=== PATIENT | female | born 1935 | race African-American/Black ===

== ENCOUNTER 2016-10-03 17:46 | Inpatient (IN) | payer MEDICAID, OTHER ==
[~2016-10-03] VITALS: Ht 162.6 cm; Wt 56.7 kg
[~2016-10-03 17:46] MED LIST: ASPIR-LOW81 MG PO; COREG; NORVASC; ONDANSETRON ODT4 MG PO; PEPCID
[2016-10-03 20:45] LABS: BASOPHILS % (AUTO) 1.8 % (0.0-2.0); EOSINOPHILS % (AUTO) 2.1 % (0.0-3.0); LYMPHOCYTES % (AUTO) 20.6 % (20.0-45.0); MEAN CORPUSCULAR HEMOGLOBIN 31.7 PG (27.0-31.0); MEAN CORPUSCULAR VOLUME 93 FL (80-99); MEAN PLATELET VOLUME 7.5 FL (6.5-10.1); MONOCYTES % (AUTO) 11.3 % (1.0-10.0); NEUTROPHILS % (AUTO) 64.3 % (45.0-75.0); PLATELET COUNT 149 K/UL (150-450); RED BLOOD COUNT 4.45 M/UL (4.20-5.40); RED CELL DISTRIBUTION WIDTH 13.6 % (11.6-14.8); WHITE BLOOD COUNT 5.3 K/UL (4.8-10.8)
[2016-10-03 20:54] LABS: TROPONIN I < 0.30 ng/mL (<=0.30)
[2016-10-03 20:57] LABS: ALANINE AMINOTRANSFERASE 11 U/L (3-33); ALBUMIN/GLOBULIN RATIO 0.7 (1.0-2.7); ANION GAP 14 (5-15); ASPARTATE AMINO TRANSFERASE 19 U/L (5-40); CALCIUM 9.5 mg/dL (8.6-10.2); CARBON DIOXIDE 26 mEQ/L (20-30); CHLORIDE 98 mEQ/L (98-107); CREATININE 0.8 mg/dL (0.5-0.9); HEMOLYSIS 17; POTASSIUM 3.7 mEQ/L (3.4-4.9); SODIUM 138 mEQ/L (135-145); TOTAL PROTEIN 7.7 g/dL (6.6-8.7)
[2016-10-03 21:00] VITALS: BP 107/80
[2016-10-03] MEDS ORDERED: DuoNeb 0.5-3(2.5)mg/3ml neb HHN PRN (21:15)
[2016-10-03] MEDS ORDERED: Mylanta II UD 30ml ORAL PRN (21:15)
[2016-10-03] MEDS ORDERED: LORazepam Inj 2mg/ml 1ml IV PRN (21:15)
[2016-10-03] MEDS ORDERED: Morphine Sulfate 2mg/ml Inj IVP PRN (21:15)
[2016-10-03] MEDS ORDERED: Nitroglycerin Subl 0.4mg tab (Bottle Of 25) SL PRN (21:15)
[2016-10-03] MEDS ORDERED: Miralax 17gm pkt ORAL PRN (21:15)
[2016-10-03 21:30] LABS: APPEARANCE,URINE CLEAR; KETONES,URINE NEGATIVE (NEGATIVE); LEUKOCYTE ESTERASE ,URINE 1+ (NEGATIVE); NITRITE,URINE NEGATIVE (NEGATIVE); PH,URINE 5 (4.5-8.0); PROTEIN,URINE 2+ (NEGATIVE); UROBILINOGEN,URINE NORMAL MG/DL (0.0-1.0)
[2016-10-03 21:38] LABS: BACTERIA,URINE MODERATE /HPF; SQUAMOUS EPITHELIAL CELL,UR FEW /LPF (NONE/OCC)
[2016-10-03] MEDS ORDERED: UNOBMED (21:52)
--- NOTE | 2016-10-03 21:56 | Emergency Room Report ---
History of Present Illness General Chief Complaint: Syncope Source: Family Member, EMS Present Illness HPI 81-year-old female presents to ED evaluation. Son at bedside states that patient was found down on the ground. unwitnessed. Unclear what happened. Patient has dementia and is unable to provide any additional history at this time. Patient does not recall falling. Patient denies chest pain or shortness of breath. Denies fevers or chills. No other aggravating or relieving factors. Denies any other associated symptoms Allergies: Coded Allergies: No Known Allergies (Unverified , 07/02/12) Patient History Past Medical History: HTN, GERD, dementia Past Surgical History: none Pertinent Family History: none Social History: Denies: alcohol use, drug use, smoking Last Menstrual Period: na Now: No Immunizations: UTD Reviewed Nursing Documentation: PMH: Agreed, PSxH: Agreed Nursing Documentation-PMH Past Medical History: No History, Except For Hx Cardiac Problems: Yes - irregular heartrate Hx Hypertension: Yes Hx Gastrointestinal Problems: Yes - GERD History Of Psychiatric Problem: Yes - dementia Review of Systems All Other Systems: negative except mentioned in HPI Physical Exam Vital Signs Date Time Temp Pulse Resp B/P Pulse Ox O2 Delivery O2 Flow Rate FiO2 10/03/16 17:42 98.2 75 18 112/58 92 10/03/16 21:00 Room Air Sp02 EP Interpretation: reviewed, normal General Appearance: no apparent distress, alert, GCS 15, non-toxic, thin Head: normocephalic, atraumatic Eyes: bilateral eye PERRL, bilateral eye normal inspection ENT: hearing grossly normal, normal pharynx, no angioedema, normal voice Neck: full range of motion, supple/symm/no masses Respiratory: chest non-tender, lungs clear, normal breath sounds, speaking full sentences Cardiovascular #1: regular rate, rhythm, no edema Cardiovascular #2: 2+ carotid (R), 2+ carotid (L), 2+ radial (R), 2+ radial (L) , 2+ dorsalis pedis (R), 2+ dorsalis pedis (L) Gastrointestinal: normal bowel sounds, non tender, soft, non-distended, no guarding, no rebound Rectal: deferred Genitourinary: normal inspection, no CVA tenderness Musculoskeletal: back normal, gait/station normal, normal range of motion, non- tender Neurologic: alert, responsive, motor strength/tone normal, sensory intact, speech normal, other - dementia Psychiatric: other - dementia Reflexes: 3+ bicep (R), 3+ bicep (L), 3+ tricep (R), 3+ tricep (L), 3+ knee (R) , 3+ knee (L) Skin: normal color, no rash, warm/dry, well hydrated Lymphatic: no adenopathy Medical Decision Making Diagnostic Impression: Primary Impression: Syncope Qualified Codes: R55 - Syncope and collapse ER Course Hospital Course 81-year-old F presents ED s/p syncopal episode. found down on ground Differential diagnoses include: TX/unstable angina, arrythmia, dehydration, CVA/ TIA Clinical course Patient placed on stretcher. on [employer]. After initial history and physical I ordered labs, EKG, chest x-ray, IVFs, CT Brain labs reviewed- no leukocytosis, hemoglobin/hematocrit ok, electrolytes okay, troponins negative EKG- NSr, no acute changes Chest x-ray- intersitial lung changes bilaterally CT brain-unremarkable Case discussed with Dr. Osorio and he agreed to accept the patient to his service for further care and support I. I feel this is a highly complex case requiring extensive working including EKG/Rhythm strip, Xray/CT/US, Blood/urine lab work, repeat exams while in ED, and administration of strong opiates/narcotics for pain control, admission to hospital or close patient follow up. Diagnosis - syncope admitted to telemetry in serious condition Labs Test 10/03/16 20:00 10/03/16 21:00 White Blood Count 5.3 K/UL (4.8-10.8) Red Blood Count 4.45 M/UL (4.20-5.40) Hemoglobin 14.1 G/DL (12.0-16.0) Hematocrit 41.4 % (37.0-47.0) Mean Corpuscular Volume 93 FL (80-99) Mean Corpuscular Hemoglobin 31.7 PG (27.0-31.0) Mean Corpuscular Hemoglobin Concent 34.0 G/DL (32.0-36.0) Red Cell Distribution Width 13.6 % (11.6-14.8) Platelet Count 149 K/UL (150-450) Mean Platelet Volume 7.5 FL (6.5-10.1) Neutrophils (%) (Auto) 64.3 % (45.0-75.0) Lymphocytes (%) (Auto) 20.6 % (20.0-45.0) Monocytes (%) (Auto) 11.3 % (1.0-10.0) Eosinophils (%) (Auto) 2.1 % (0.0-3.0) Basophils (%) (Auto) 1.8 % (0.0-2.0) Sodium Level 138 mEQ/L (135-145) Potassium Level 3.7 mEQ/L (3.4-4.9) Chloride Level 98 mEQ/L (98-107) Carbon Dioxide Level 26 mEQ/L (20-30) Anion Gap 14 (5-15) Blood Urea Nitrogen 18 mg/dL (7-23) Creatinine 0.8 mg/dL (0.5-0.9) Estimat Glomerular Filtration Rate mL/min (>60) Glucose Level 120 mg/dL (74-106) Calcium Level 9.5 mg/dL (8.6-10.2) Total Bilirubin 0.2 mg/dL (0.0-1.2) Aspartate Amino Transf (AST/SGOT) 19 U/L (5-40) Alanine Aminotransferase (ALT/SGPT) 11 U/L (3-33) Alkaline Phosphatase 93 U/L (35-104) Total Creatine Kinase 135 U/L (26-140) Creatine Kinase MB 2.0 ng/mL (< 3.8) Creatine Kinase MB Relative Index 1.4 Troponin I < 0.30 ng/mL (<=0.30) Pro-B-Type Natriuretic Peptide 76 pg/mL (0-450) Total Protein 7.7 g/dL (6.6-8.7) Albumin 3.3 g/dL (3.5-5.2) Globulin 4.4 g/dL Albumin/Globulin Ratio 0.7 (1.0-2.7) Urine Color Yellow Urine Appearance Clear Urine pH 5 (4.5-8.0) Urine Specific [place] 1.025 (1.005-1.035) Urine Protein 2+ (NEGATIVE) Urine Glucose (UA) Negative (NEGATIVE) Urine Ketones Negative (NEGATIVE) Urine Occult Blood 3+ (NEGATIVE) Urine Nitrite Negative (NEGATIVE) Urine Bilirubin Negative (NEGATIVE) Urine Urobilinogen Normal MG/DL (0.0-1.0) Urine Leukocyte Esterase 1+ (NEGATIVE) Urine RBC 5-10 /HPF (0 - 2) Urine WBC 2-4 /HPF (0 - 2) Urine Squamous Epithelial Cells Few /LPF (NONE/OCC) Urine Bacteria Moderate /HPF (NONE) EKG Diagnostic Results Rate: normal Rhythm: NSR ST Segments: no acute changes ASA given to the pt in ED: No Rhythm Strip Diag. Results EP Interpretation: yes Rhythm: NSR, no PVC's, no ectopy Chest X-Ray Diagnostic Results EP Interpretation: Yes Findings: no consolidation, no effusion, no pneumothorax, no acute cardiopulmonary disease, other - interstitial lung changes bilaterally Number of Views: 1 CT/MRI/US Diagnostic Results CT/MRI/US Diagnostic Results : Imaging Test Ordered: CT head Impression no acute process Last Vital Signs Date Time Temp Pulse Resp B/P Pulse Ox O2 Delivery O2 Flow Rate FiO2 10/03/16 21:00 97.2 103 15 107/80 98 Room Air Status: improved Disposition: ADMITTED INPATIENT Condition: Serious Referrals: DANE RUVALCABA (PCP) DENNIS TERRAZAS M.D. October 03, 2016 21:56
[2016-10-03] MEDS: Heparin 5000 units/ml inj SUBQ SCH (23:57)
[2016-10-04] VITALS (7 sets, daily range): BP systolic 99–154; BP diastolic 53–96
[2016-10-04 06:04] LABS: BASOPHILS % (AUTO) 1.4 % (0.0-2.0); EOSINOPHILS % (AUTO) 2.9 % (0.0-3.0); LYMPHOCYTES % (AUTO) 35.9 % (20.0-45.0); MEAN CORPUSCULAR HEMOGLOBIN 29.6 PG (27.0-31.0); MEAN CORPUSCULAR HGB CONC 32.1 G/DL (32.0-36.0); MEAN CORPUSCULAR VOLUME 92 FL (80-99); MEAN PLATELET VOLUME 6.9 FL (6.5-10.1); MONOCYTES % (AUTO) 10.7 % (1.0-10.0); NEUTROPHILS % (AUTO) 49.1 % (45.0-75.0); PLATELET COUNT 165 K/UL (150-450); RED BLOOD COUNT 4.41 M/UL (4.20-5.40); RED CELL DISTRIBUTION WIDTH 13.9 % (11.6-14.8); WHITE BLOOD COUNT 4.1 K/UL (4.8-10.8)
[2016-10-04 06:11] LABS: INR 1.1 (0.9-1.1); PROTHROMBIN TIME 11.3 SEC (9.30-11.50)
[2016-10-04 06:40] LABS: ALANINE AMINOTRANSFERASE 10 U/L (3-33); ALBUMIN/GLOBULIN RATIO 0.6 (1.0-2.7); ANION GAP 13 (5-15); ASPARTATE AMINO TRANSFERASE 17 U/L (5-40); CARBON DIOXIDE 27 mEQ/L (20-30); CHLORIDE 99 mEQ/L (98-107); CHOLESTEROL 172 mg/dL (< 200); CHOLESTEROL/HDL RATIO 2.2 (3.3-4.4); CREATININE 0.6 mg/dL (0.5-0.9); HEMOLYSIS 20; LDL CHOLESTEROL (CALC.) 81 mg/dL (60-99); POTASSIUM 3.6 mEQ/L (3.4-4.9); SODIUM 139 mEQ/L (135-145)
[2016-10-04] MEDS: Heparin 5000 units/ml inj SUBQ SCH ×2 (08:35→21:00)
--- NOTE | 2016-10-04 08:35 | Diagnostic Imaging Report ---
Indication: Syncope Technique: Contiguous 5 mm thick transaxial imaging of the head obtained in a Siemens Sensation [address] scanner. Soft tissue and bone windows generated. Total Dose length Product (DLP): [address] Dose Index Volume (CTDIvol): 70.38 mGy Comparison: none Findings: There is moderate prominence of the ventricles, basal cisterns, and cerebral sulci consistent with atrophy. Moderate, nonspecific, white matter hypoattenuation is noted throughout the brain consistent with chronic small vessel disease. There is no midline shift, edema, acute hemorrhage, mass effect, or abnormal extra-axial fluid collections. Bones and extra osseous soft tissues are unremarkable. Impression: No acute intracranial bleed, mass effect or edema. Moderate atrophy of the brain. Evidence of chronic small vessel disease involving white matter tracts. The CT scanner at [facility] is accredited by the [employer] and the scans are performed using protocols designed to limit radiation exposure to as low as reasonably achievable to attain images of sufficient resolution adequate for diagnostic evaluation.
--- NOTE | 2016-10-04 10:54 | Cardiology Progress Note ---
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 driver through her hmo on thrus as planned [id number] Objective Last 24 Hour Vital Signs Date Time Temp Pulse Resp B/P Pulse Ox O2 Delivery O2 Flow Rate FiO2 10/04/16 08:53 97.3 64 18 128/96 99 Room Air 10/04/16 06:38 64 17 Room Air 10/04/16 04:00 110 10/04/16 04:00 97.9 62 20 124/65 98 Room Air 10/04/16 00:51 107 20 Room Air 10/04/16 00:00 107 10/04/16 00:00 98.1 107 20 133/68 98 Room Air 10/03/16 21:52 97.2 103 15 107/80 98 Room Air 10/03/16 21:00 97.2 103 15 107/80 98 Room Air 10/03/16 17:42 98.2 75 18 112/58 92 Intake and Output 10/03/16 10/04/16 19:00 07:00 Intake Total 500 ml Output Total 200 ml Balance 300 ml IV Total 500 ml Output Urine Total 200 ml # Voids 2 Laboratory Tests Test 10/03/16 20:00 10/03/16 21:00 10/04/16 04:30 White Blood Count 5.3 K/UL (4.8-10.8) 4.1 K/UL (4.8-10.8) L Red Blood Count 4.45 M/UL (4.20-5.40) 4.41 M/UL (4.20-5.40) Hemoglobin 14.1 G/DL (12.0-16.0) 13.1 G/DL (12.0-16.0) Hematocrit 41.4 % (37.0-47.0) 40.6 % (37.0-47.0) Mean Corpuscular Volume 93 FL (80-99) 92 FL (80-99) Mean Corpuscular Hemoglobin 31.7 PG (27.0-31.0) H 29.6 PG (27.0-31.0) Mean Corpuscular Hemoglobin Concent 34.0 G/DL (32.0-36.0) 32.1 G/DL (32.0-36.0) Red Cell Distribution Width 13.6 % (11.6-14.8) 13.9 % (11.6-14.8) Platelet Count 149 K/UL (150-450) L 165 K/UL (150-450) Mean Platelet Volume 7.5 FL (6.5-10.1) 6.9 FL (6.5-10.1) Neutrophils (%) (Auto) 64.3 % (45.0-75.0) 49.1 % (45.0-75.0) Lymphocytes (%) (Auto) 20.6 % (20.0-45.0) 35.9 % (20.0-45.0) Monocytes (%) (Auto) 11.3 % (1.0-10.0) H 10.7 % (1.0-10.0) H Eosinophils (%) (Auto) 2.1 % (0.0-3.0) 2.9 % (0.0-3.0) Basophils (%) (Auto) 1.8 % (0.0-2.0) 1.4 % (0.0-2.0) Sodium Level 138 mEQ/L (135-145) 139 mEQ/L (135-145) Potassium Level 3.7 mEQ/L (3.4-4.9) 3.6 mEQ/L (3.4-4.9) Chloride Level 98 mEQ/L (98-107) 99 mEQ/L (98-107) Carbon Dioxide Level 26 mEQ/L (20-30) 27 mEQ/L (20-30) Anion Gap 14 (5-15) 13 (5-15) Blood Urea Nitrogen 18 mg/dL (7-23) 12 mg/dL (7-23) Creatinine 0.8 mg/dL (0.5-0.9) 0.6 mg/dL (0.5-0.9) Estimat Glomerular Filtration Rate mL/min (>60) mL/min (>60) Glucose Level 120 mg/dL (74-106) H 86 mg/dL (74-106) Calcium Level 9.5 mg/dL (8.6-10.2) 9.0 mg/dL (8.6-10.2) Total Bilirubin 0.2 mg/dL (0.0-1.2) 0.3 mg/dL (0.0-1.2) Aspartate Amino Transf (AST/SGOT) 19 U/L (5-40) 17 U/L (5-40) Alanine Aminotransferase (ALT/SGPT) 11 U/L (3-33) 10 U/L (3-33) Alkaline Phosphatase 93 U/L (35-104) 81 U/L (35-104) Total Creatine Kinase 135 U/L (26-140) Creatine Kinase MB 2.0 ng/mL (< 3.8) Creatine Kinase MB Relative Index 1.4 Troponin I < 0.30 ng/mL (<=0.30) Pro-B-Type Natriuretic Peptide 76 pg/mL (0-450) Total Protein 7.7 g/dL (6.6-8.7) 7.0 g/dL (6.6-8.7) Albumin 3.3 g/dL (3.5-5.2) L 2.8 g/dL (3.5-5.2) L Globulin 4.4 g/dL 4.2 g/dL Albumin/Globulin Ratio 0.7 (1.0-2.7) L 0.6 (1.0-2.7) L Urine Color Yellow Urine Appearance Clear Urine pH 5 (4.5-8.0) Urine Specific [place] 1.025 (1.005-1.035) Urine Protein 2+ (NEGATIVE) H Urine Glucose (UA) Negative (NEGATIVE) Urine Ketones Negative (NEGATIVE) Urine Occult Blood 3+ (NEGATIVE) H Urine Nitrite Negative (NEGATIVE) Urine Bilirubin Negative (NEGATIVE) Urine Urobilinogen Normal MG/DL (0.0-1.0) Urine Leukocyte Esterase 1+ (NEGATIVE) H Urine RBC 5-10 /HPF (0 - 2) H Urine WBC 2-4 /HPF (0 - 2) Urine Squamous Epithelial Cells Few /LPF (NONE/OCC) Urine Bacteria Moderate /HPF (NONE) H Prothrombin Time 11.3 SEC (9.30-11.50) Prothromb Time International Ratio 1.1 (0.9-1.1) Activated Partial Thromboplast Time 26 SEC (23-33) Triglycerides Level 58 mg/dL (< 150) Cholesterol Level 172 mg/dL (< 200) LDL Cholesterol 81 mg/dL (60-99) HDL Cholesterol 79 mg/dL (> 60) H Cholesterol/HDL Ratio 2.2 (3.3-4.4) L Thyroid Stimulating Hormone (TSH) 1.900 uIU/mL (0.300-4.500) AKOSUA AMEZQUITA October 04, 2016 10:54
--- NOTE | 2016-10-04 12:09 | Diagnostic Imaging Report ---
Indication: Chest Pain Comparison: None A single view chest radiograph was obtained. Findings: The lungs are hyperexpanded. Abnormal interstitial densities are noted throughout the lungs especially in the upper lobes. There is pleural thickening. Some calcification is noted in the apex of the right lung. Heart size is probably normal. Scoliosis is present with diffuse generalized osteopenia. Impression: Chronic lung disease. Superimposed interstitial pneumonitis or mild interstitial edema is not excluded. Please correlate clinically
--- NOTE | 2016-10-04 13:56 | History and Physical ---
History of Present Illness General Date patient seen: October 04, 2016 Reason for Hospitalization: Syncope Present Illness HPI 81-year-old female with hx of chronic lung disease, end stage dementia , cachexia, presented to ED evaluation of ALOC, she was found down on the ground. unwitnessed. Unclear what happened. Patient has dementia and know only her name She thinks that her mother still taking care of her. Patient does not recall falling. Patient denies chest pain or shortness of breath. Denies fevers or chills. No other aggravating or relieving factors. Denies any other associated symptoms Allergies: Coded Allergies: No Known Allergies (Unverified , 07/02/12) Medication History Scheduled Aspirin* (Aspir-Low*), 81 MG PO DAILY, (Reported) Ondansetron Odt* (Zofran Odt*), 4 MG PO Q8H Miscellaneous Medications Unable to Obtain Medications (Unable To Obtain Meds), (Reported) [Coreg], (Reported) [Norvasc], (Reported) [Pepcid], (Reported) Patient History Healthcare decision maker Mehran Rivera Resuscitation status Full Code Advanced Directive on File Past Medical/Surgical History Past Medical/Surgical History: (1) Chronic lung disease (2) Dementia (3) Severe protein-calorie malnutrition Review of Systems All Other Systems: negative except mentioned in HPI Physical Exam General Appearance: cachetic Lines, tubes and drains: peripheral, central line HEENT: normocephalic, atraumatic Neck: non-tender, normal alignment Respiratory/Chest: chest wall non-tender, lungs clear, normal breath sounds Cardiovascular/Chest: normal peripheral pulses, normal rate, regular rhythm Abdomen: normal bowel sounds, non tender, no organomegaly Last 24 Hour Vital Signs Date Time Temp Pulse Resp B/P Pulse Ox O2 Delivery O2 Flow Rate FiO2 10/04/16 12:44 97.7 59 18 119/66 96 Room Air 10/04/16 12:42 59 60 65 10/04/16 12:00 54 10/04/16 08:53 97.3 64 18 128/96 99 Room Air 10/04/16 08:00 71 10/04/16 06:38 64 17 Room Air 10/04/16 04:00 110 10/04/16 04:00 97.9 62 20 124/65 98 Room Air 10/04/16 00:51 107 20 Room Air 10/04/16 00:00 107 10/04/16 00:00 98.1 107 20 133/68 98 Room Air 10/03/16 21:52 97.2 103 15 107/80 98 Room Air 10/03/16 21:00 97.2 103 15 107/80 98 Room Air 10/03/16 17:42 98.2 75 18 112/58 92 Intake and Output 10/03/16 10/04/16 19:00 07:00 Intake Total 500 ml Output Total 200 ml Balance 300 ml IV Total 500 ml Output Urine Total 200 ml # Voids 2 Laboratory Tests Test 10/03/16 20:00 10/03/16 21:00 10/04/16 04:30 White Blood Count 5.3 K/UL (4.8-10.8) 4.1 K/UL (4.8-10.8) L Red Blood Count 4.45 M/UL (4.20-5.40) 4.41 M/UL (4.20-5.40) Hemoglobin 14.1 G/DL (12.0-16.0) 13.1 G/DL (12.0-16.0) Hematocrit 41.4 % (37.0-47.0) 40.6 % (37.0-47.0) Mean Corpuscular Volume 93 FL (80-99) 92 FL (80-99) Mean Corpuscular Hemoglobin 31.7 PG (27.0-31.0) H 29.6 PG (27.0-31.0) Mean Corpuscular Hemoglobin Concent 34.0 G/DL (32.0-36.0) 32.1 G/DL (32.0-36.0) Red Cell Distribution Width 13.6 % (11.6-14.8) 13.9 % (11.6-14.8) Platelet Count 149 K/UL (150-450) L 165 K/UL (150-450) Mean Platelet Volume 7.5 FL (6.5-10.1) 6.9 FL (6.5-10.1) Neutrophils (%) (Auto) 64.3 % (45.0-75.0) 49.1 % (45.0-75.0) Lymphocytes (%) (Auto) 20.6 % (20.0-45.0) 35.9 % (20.0-45.0) Monocytes (%) (Auto) 11.3 % (1.0-10.0) H 10.7 % (1.0-10.0) H Eosinophils (%) (Auto) 2.1 % (0.0-3.0) 2.9 % (0.0-3.0) Basophils (%) (Auto) 1.8 % (0.0-2.0) 1.4 % (0.0-2.0) Sodium Level 138 mEQ/L (135-145) 139 mEQ/L (135-145) Potassium Level 3.7 mEQ/L (3.4-4.9) 3.6 mEQ/L (3.4-4.9) Chloride Level 98 mEQ/L (98-107) 99 mEQ/L (98-107) Carbon Dioxide Level 26 mEQ/L (20-30) 27 mEQ/L (20-30) Anion Gap 14 (5-15) 13 (5-15) Blood Urea Nitrogen 18 mg/dL (7-23) 12 mg/dL (7-23) Creatinine 0.8 mg/dL (0.5-0.9) 0.6 mg/dL (0.5-0.9) Estimat Glomerular Filtration Rate mL/min (>60) mL/min (>60) Glucose Level 120 mg/dL (74-106) H 86 mg/dL (74-106) Calcium Level 9.5 mg/dL (8.6-10.2) 9.0 mg/dL (8.6-10.2) Total Bilirubin 0.2 mg/dL (0.0-1.2) 0.3 mg/dL (0.0-1.2) Aspartate Amino Transf (AST/SGOT) 19 U/L (5-40) 17 U/L (5-40) Alanine Aminotransferase (ALT/SGPT) 11 U/L (3-33) 10 U/L (3-33) Alkaline Phosphatase 93 U/L (35-104) 81 U/L (35-104) Total Creatine Kinase 135 U/L (26-140) Creatine Kinase MB 2.0 ng/mL (< 3.8) Creatine Kinase MB Relative Index 1.4 Troponin I < 0.30 ng/mL (<=0.30) Pro-B-Type Natriuretic Peptide 76 pg/mL (0-450) Total Protein 7.7 g/dL (6.6-8.7) 7.0 g/dL (6.6-8.7) Albumin 3.3 g/dL (3.5-5.2) L 2.8 g/dL (3.5-5.2) L Globulin 4.4 g/dL 4.2 g/dL Albumin/Globulin Ratio 0.7 (1.0-2.7) L 0.6 (1.0-2.7) L Urine Color Yellow Urine Appearance Clear Urine pH 5 (4.5-8.0) Urine Specific [place] 1.025 (1.005-1.035) Urine Protein 2+ (NEGATIVE) H Urine Glucose (UA) Negative (NEGATIVE) Urine Ketones Negative (NEGATIVE) Urine Occult Blood 3+ (NEGATIVE) H Urine Nitrite Negative (NEGATIVE) Urine Bilirubin Negative (NEGATIVE) Urine Urobilinogen Normal MG/DL (0.0-1.0) Urine Leukocyte Esterase 1+ (NEGATIVE) H Urine RBC 5-10 /HPF (0 - 2) H Urine WBC 2-4 /HPF (0 - 2) Urine Squamous Epithelial Cells Few /LPF (NONE/OCC) Urine Bacteria Moderate /HPF (NONE) H Prothrombin Time 11.3 SEC (9.30-11.50) Prothromb Time International Ratio 1.1 (0.9-1.1) Activated Partial Thromboplast Time 26 SEC (23-33) Triglycerides Level 58 mg/dL (< 150) Cholesterol Level 172 mg/dL (< 200) LDL Cholesterol 81 mg/dL (60-99) HDL Cholesterol 79 mg/dL (> 60) H Cholesterol/HDL Ratio 2.2 (3.3-4.4) L Thyroid Stimulating Hormone (TSH) 1.900 uIU/mL (0.300-4.500) Height (Feet): 5 Height (Inches): 4.00 Weight (Pounds): 125 Medications Current Medications Medications (Trade) Dose Ordered Sig/Laura Route PRN Reason Start Time Stop Time Status Last Admin Dose Admin Acetaminophen (Tylenol) 650 mg Q4H PRN ORAL fever 10/03/16 21:15 11/02/16 21:14 Al Hydroxide/Mg Hydroxide (Mylanta II) 30 ml Q6H PRN ORAL dyspepsia 10/03/16 21:15 11/02/16 21:14 Albuterol/ Ipratropium (DuoNeb 0.5-3(2.5)mg/3ml) 3 ml Q4H PRN HHN Shortness of Breath 10/03/16 21:15 10/08/16 21:14 Clonidine HCl (Catapres) 0.1 mg Q4H PRN ORAL SBP > 160 10/03/16 21:15 11/02/16 21:14 Dextrose (Dextrose 50%) STAT PRN IV Hypoglycemia 10/03/16 21:15 11/02/16 21:14 Heparin Sodium (Porcine) (Heparin 5000 units/ml) 5,000 units EVERY 12 HOURS SUBQ 10/03/16 23:00 11/02/16 22:59 10/04/16 08:35 Lorazepam (Ativan 2mg/ml 1ml) 0.5 mg Q4H PRN IV For Anxiety 10/03/16 21:15 10/10/16 21:14 Morphine Sulfate (Morphine Sulfate) 1 mg Q4H PRN IVP For Pain 7-10 10/03/16 21:15 10/10/16 21:14 Nitroglycerin (Ntg) 0.4 mg Q5M X 3 DOSES PRN SL Prn Chest Pain 10/03/16 21:15 11/02/16 21:14 Ondansetron HCl (Zofran) 4 mg Q6H PRN IVP Nausea & Vomiting 10/03/16 21:15 11/02/16 21:14 Polyethylene Glycol (Miralax) 17 gm HSPRN PRN ORAL Constipation 10/03/16 21:15 11/02/16 21:14 Temazepam (Restoril) 15 mg HSPRN PRN ORAL Insomnia 10/03/16 21:15 10/10/16 21:14 10/03/16 23:56 Assessment/Plan Problem List: (1) Dementia ICD Codes: F03.90 - Unspecified dementia without behavioral disturbance SNOMED: 83795083 (2) Acute encephalopathy ICD Codes: G93.40 - Encephalopathy, unspecified SNOMED: 5335019 (3) Syncope ICD Codes: R55 - Syncope and collapse SNOMED: 426093090 Qualifiers: Qualified Codes: R55 - Syncope and collapse (4) Severe protein-calorie malnutrition ICD Codes: E43 - Unspecified severe protein-calorie malnutrition SNOMED: 274505621 (5) Chronic lung disease ICD Codes: J98.4 - Other disorders of lung SNOMED: 174755634 Assessment/Plan echo doppler of carotid artery calorie count swallow evaluation pt/ot NEAL TIRADO October 04, 2016 13:56
--- NOTE | 2016-10-04 15:32 | Cardiology Report ---
APPROVED REPORT EXAM: Two-dimensional and M-mode echocardiogram with Doppler and color Doppler. INDICATION LV function Normal left ventricular chamber size, systolic function and wall motion. Left ventricular ejection fraction estimated to be 60-65 %. No evidence of left ventricular hypertrophy. Anterior Echo-free space, may be due to pericardial fat or effusion. All other cardiac chamber sizes are within normal limits. Focal aortic valve sclerosis with adequate cusp excursion. Thickened mitral valve leaflets with normal excursion. Mitral annulus and aortic root calcification. Pulmonic valve not well visualized. Normal tricuspid valve structure. IVC at normal size with physiologic collapse. A color flow and spectral Doppler study was performed and revealed: No aortic regurgitation. Trace mitral regurgitation. Mitral diastolic velocities suggest reduced left ventricular relaxation c/w mild LV diastolic dysfunction (Grade I). Mild tricuspid regurgitation. Tricuspid systolic velocities suggests peak right ventricular systolic pressure of 31 mmHg.
--- NOTE | 2016-10-04 15:48 | Cardiology Report ---
APPROVED REPORT EKG Measurement Heart [id number] Atrial fibrillation Nonspecific ST and T wave abnormality Abnormal ECG
--- NOTE | 2016-10-04 21:38 | Consultation ---
DATE OF CONSULTATION: 10/04/2016 CARDIOLOGY CONSULTATION REASON FOR CONSULTATION: Syncope. HISTORY OF PRESENT ILLNESS: This is an elderly female who is demented. Information is obtained from discussion with the patient's son over the phone and from records that I was able to obtain from her primary care physician's office, #[phone]. According to her son, the son was lying down, his mother was sitting up in the chair and her nephew was watching her, suddenly the nephew ran out telling them that the grandmother passed out. When the son arrived there, the patient was on the floor, was not trying to get up apparently he thought if she probably passed out too, apparently at some point she vomited and eventually the paramedics were summoned and the patient was brought to the emergency room by the paramedics to [facility]. The credit associate run sheet indicates when they found the patient she had initially blood pressure of 98/57, atrial fibrillation was noted on the monitor and eventually blood pressure went up to 115/62. They think the best case that she had a syncopal episode. No loss of consciousness. No neck or back pain. Dementia was behaving per her usual mentation according to the son when talked with paramedics. The patient was apparently ambulatory, in no distress and no orthostatics and the patient was transferred again to [facility] where she was evaluated and admitted to the hospital. On questioning, she denies any chest pain or shortness of breath. She actually does not know why she is in the hospital. She does not have any PND or orthopnea. No palpitations. No lightheadedness on standing. No pain, pressure, tightness or heaviness in her chest and she denies passing out. PAST MEDICAL HISTORY: According to the records from the doctor's office, history of hypertension, dementia, osteoporosis, borderline abnormal EKG, sinus bradycardia for which she was referred to a chemistry instructor recently on 09/03/2016 and according to her son, she was supposed to see the chemistry instructor this coming . MEDICATIONS: Her medication list at home include Namenda 10 mg a day, Coreg mg, Cozaar 50 mg daily, and Norvasc 10 mg daily. ALLERGIES: No drug allergies. SOCIAL HISTORY: She does not smoke or drink alcoholic beverages. No drug use. REVIEW OF SYSTEMS: Gastrointestinal: She denies. Genitourinary: She denies. Pulmonary: She denies. Constitutional: She denies. Neurologic: She denies. Cardiac: She denies. PHYSICAL EXAMINATION: GENERAL: The patient is a pleasantly demented elderly female in no apparent respiratory distress. NECK: Supple. No jugular venous distention. LUNGS: Appear to be clear to auscultation and percussion. CARDIAC: S1 is normal. S2 is normal. Regular rate and rhythm. No heaves, thrills, gallops, or rubs are noted. ABDOMEN: Soft and nontender. Positive bowel sounds. EXTREMITIES: There is no clubbing, cyanosis, nor is there any edema. NEUROLOGIC: She is awake, alert, responsive, but she has completely disoriented and she moves all four extremities. LABORATORY AND DIAGNOSTIC DATA: Electrocardiogram done by the paramedics indicated atrial fibrillation, ventricular response appeared to be well controlled, but not rapid and her telemetry data also indicated atrial fibrillation initially with somewhat of a higher rate when she got up here to the floor and she saturates as high as 107 and then she spontaneously converted to sinus rhythm at 71 subsequently. Her laboratory data., White count 4.1, hemoglobin 13.1, and platelet count 165,000. Sodium is 139, potassium 3.6, chloride 99, bicarbonate 27, BUN 12, creatinine 0.6, and glucose of 86. Liver function tests are normal. Albumin is 2.8. Globulin is 4.2. Total cholesterol 170 with a LDL of 81 and HDL of 79. TSH of 1.9. Coagulations, INR of 1.1 and a PTT of 26. Urinalysis shows 5 to 10 RBCs, 2 to 4 WBCs, and 3+ nitrites. Imaging, the CT scan of the head that was performed, no acute intracranial bleed, mass effect, or edema. Mild atrophy is noted. Evidence of chronic small vessel ischemic changes were noted. A chest x-ray performed, but not reported yet shows hyperinflated lungs. No cardiomegaly noted. ASSESSMENT AND PLAN: 1. Probable syncopal episode. 2. 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 3. Hypertension. 4. Dementia. 5. Osteoporosis. Dr. Osorio, this patient was seen in cardiac consultation. The patient's vital signs show her blood pressure to be anywhere between 107/80 at the time of admission to 133/68. She is back in sinus rhythm at this time, but she was in atrial fibrillation throughout the evening, it sounds like she may have an element of sick sinus syndrome with paroxysmal episodes of atrial fibrillation, possible tachy-juan alberto in origin. She is somewhat of a poor candidate for anticoagulation. If she was in atrial fibrillation acutely as a cause of her syncope, it apparently possibly not lasted long enough and I will be very hesitant to administer any anticoagulation as of yet. She may need further workup. She is scheduled to see a chemistry instructor on and it is possible that she may have to see them to make her outpatient arrangements. I am hesitant to administer any other medication including beta-blockers or Coreg for the time being or the increase of the medications until she is seen in followup. Serial enzymes and EKGs will be checked. Echocardiogram will be checked in the interim and if all of those are negative and she is not orthostatic, it may be best that she gets her workup done through her HMO. Mikhail Bowen M.D. DR: CORTNEY JOB#: [id number] CC:
[2016-10-05] VITALS: BP 137/69
[2016-10-05 04:53] VITALS: BP 138/67
[2016-10-05 07:38] VITALS: BP 153/59
[2016-10-05 08:05] LABS: TROPONIN I < 0.30 ng/mL (<=0.30)
[2016-10-05 08:08] LABS: BASOPHILS % (AUTO) 1.7 % (0.0-2.0); EOSINOPHILS % (AUTO) 3.5 % (0.0-3.0); LYMPHOCYTES % (AUTO) 33.8 % (20.0-45.0); MEAN CORPUSCULAR HGB CONC 32.5 G/DL (32.0-36.0); MEAN CORPUSCULAR VOLUME 92 FL (80-99); MEAN PLATELET VOLUME 7.4 FL (6.5-10.1); MONOCYTES % (AUTO) 11.4 % (1.0-10.0); NEUTROPHILS % (AUTO) 49.7 % (45.0-75.0); PLATELET COUNT 144 K/UL (150-450); RED CELL DISTRIBUTION WIDTH 13.7 % (11.6-14.8); WHITE BLOOD COUNT 3.8 K/UL (4.8-10.8)
[2016-10-05 08:14] LABS: ALANINE AMINOTRANSFERASE 8 U/L (3-33); ALBUMIN/GLOBULIN RATIO 0.9 (1.0-2.7); ANION GAP 9 (5-15); ASPARTATE AMINO TRANSFERASE 13 U/L (5-40); CARBON DIOXIDE 31 mEQ/L (20-30); CHLORIDE 102 mEQ/L (98-107); CREATININE 0.8 mg/dL (0.5-0.9); HEMOLYSIS 3; POTASSIUM 3.8 mEQ/L (3.4-4.9); SODIUM 142 mEQ/L (135-145); TOTAL PROTEIN 6.5 g/dL (6.6-8.7)
[2016-10-05] MEDS: Heparin 5000 units/ml inj SUBQ SCH ×2 (08:35→22:10)
[2016-10-05 11:27] VITALS: BP 149/62
--- NOTE | 2016-10-05 13:43 | Pulmonology Progress Note ---
Assessment/Plan Problems: (1) Acute encephalopathy (2) Syncope (3) UTI (urinary tract infection) (4) Sick sinus syndrome (5) Chronic lung disease (6) Severe protein-calorie malnutrition (7) Dementia Assessment/Plan cardio to follow start ceftriaxone for uti check echo check urine cultures tolerating diet. Subjective Interval Events: awake Allergies: Coded Allergies: No Known Allergies (Unverified , 07/02/12) Objective Last 24 Hour Vital Signs Date Time Temp Pulse Resp B/P Pulse Ox O2 Delivery O2 Flow Rate FiO2 10/05/16 11:27 98.4 58 18 149/62 99 Room Air 10/05/16 09:10 73 10/05/16 09:05 59 10/05/16 09:00 59 10/05/16 07:38 98.2 60 18 153/59 99 Room Air 10/05/16 04:53 97.4 56 20 138/67 98 Room Air 10/05/16 04:00 59 10/05/16 00:00 63 10/05/16 00:00 97.4 64 20 137/69 96 Room Air 10/04/16 21:00 58 62 71 10/04/16 20:00 57 10/04/16 20:00 97.7 60 20 111/63 95 Room Air 10/04/16 19:15 59 17 Room Air 10/04/16 16:05 97.2 60 18 99/53 98 Room Air 10/04/16 16:00 68 Intake and Output 10/04/16 10/05/16 19:00 07:00 Intake Total 720 ml Balance 720 ml Intake Oral 720 ml # Voids 4 2 General Appearance: cachetic HEENT: normocephalic, atraumatic Respiratory/Chest: chest wall non-tender, lungs clear Cardiovascular: normal peripheral pulses, regular rhythm Abdomen: normal bowel sounds Microbiology Date/Time Source Procedure Growth Status 10/03/16 21:00 Urine,Clean Catch Urine Culture - Preliminary Mixed Gram Positive Organism Resulted Laboratory Tests 10/05/16 07:05: White Blood Count 3.8L, Red Blood Count 4.00L, Hemoglobin 12.0, Hematocrit 36.9L , Mean Corpuscular Volume 92, Mean Corpuscular Hemoglobin 30.0, Mean Corpuscular Hemoglobin Concent 32.5, Red Cell Distribution Width 13.7, Platelet Count 144L, Mean Platelet Volume 7.4, Neutrophils (%) (Auto) 49.7, Lymphocytes ( %) (Auto) 33.8, Monocytes (%) (Auto) 11.4H, Eosinophils (%) (Auto) 3.5H, Basophils (%) (Auto) 1.7, Sodium Level 142, Potassium Level 3.8, Chloride Level 102, Carbon Dioxide Level 31H, Anion Gap 9, Blood Urea Nitrogen 17, Creatinine 0.8, Estimat Glomerular Filtration Rate , Glucose Level 87, Calcium Level 9.0, Total Bilirubin < 0.2, Aspartate Amino Transf (AST/SGOT) 13, Alanine Aminotransferase (ALT/SGPT) 8, Alkaline Phosphatase 77, Troponin I < 0.30, Total Protein 6.5L, Albumin 3.2L, Globulin 3.3, Albumin/Globulin Ratio 0.9L Current Medications Medications (Trade) Dose Ordered Sig/Laura Route PRN Reason Start Time Stop Time Status Last Admin Dose Admin Acetaminophen (Tylenol) 650 mg Q4H PRN ORAL fever 10/03/16 21:15 11/02/16 21:14 Al Hydroxide/Mg Hydroxide (Mylanta II) 30 ml Q6H PRN ORAL dyspepsia 10/03/16 21:15 11/02/16 21:14 Albuterol/ Ipratropium (DuoNeb 0.5-3(2.5)mg/3ml) 3 ml Q4H PRN HHN Shortness of Breath 10/03/16 21:15 10/08/16 21:14 Clonidine HCl (Catapres) 0.1 mg Q4H PRN ORAL SBP > 160 10/03/16 21:15 11/02/16 21:14 Dextrose (Dextrose 50%) STAT PRN IV Hypoglycemia 10/03/16 21:15 11/02/16 21:14 Heparin Sodium (Porcine) (Heparin 5000 units/ml) 5,000 units EVERY 12 HOURS SUBQ 10/03/16 23:00 11/02/16 22:59 10/05/16 08:35 Lorazepam (Ativan 2mg/ml 1ml) 0.5 mg Q4H PRN IV For Anxiety 10/03/16 21:15 10/10/16 21:14 Morphine Sulfate (Morphine Sulfate) 1 mg Q4H PRN IVP For Pain 7-10 10/03/16 21:15 10/10/16 21:14 Nitroglycerin (Ntg) 0.4 mg Q5M X 3 DOSES PRN SL Prn Chest Pain 10/03/16 21:15 11/02/16 21:14 Ondansetron HCl (Zofran) 4 mg Q6H PRN IVP Nausea & Vomiting 10/03/16 21:15 11/02/16 21:14 Polyethylene Glycol (Miralax) 17 gm HSPRN PRN ORAL Constipation 10/03/16 21:15 11/02/16 21:14 Temazepam (Restoril) 15 mg HSPRN PRN ORAL Insomnia 10/03/16 21:15 10/10/16 21:14 10/03/16 23:56 NEAL TIRADO October 05, 2016 13:42
[2016-10-05] MEDS: cefTRIAXone 1 GM in D5W 55 ML IVPB SCH (14:45)
[2016-10-05 15:25] VITALS: BP 125/78
--- NOTE | 2016-10-05 17:06 | Cardiology Report ---
APPROVED REPORT EKG Measurement Heart [id number] [id number] Sinus bradycardia Otherwise normal ECG
--- NOTE | 2016-10-05 17:13 | Cardiology Report ---
APPROVED REPORT EKG Measurement Heart [id number] Sinus bradycardia Septal infarct, age undetermined Abnormal ECG
[2016-10-05 20:00] VITALS: BP 114/58
--- NOTE | 2016-10-05 21:07 | Cardiology Progress Note ---
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 back in sinu remain in sinus revieweed tele avoid bb be tolerant of higher bp reading may need to consider option for afib prevention i an concerned about her candidacy for anticoagulation given her dementia maybe best to have her fu with perm assigned services host through her hmo planned discussed with her son at bedside echo noted goo lv fucntion home soon Subjective Cardiovascular: Denies: chest pain, irregular heart rate Respiratory: Denies: cough Gastrointestinal/Abdominal: Denies: abdomen distended Genitourinary: Denies: no symptoms Objective Last 24 Hour Vital Signs Date Time Temp Pulse Resp B/P Pulse Ox O2 Delivery O2 Flow Rate FiO2 10/05/16 20:00 97.7 64 18 114/58 100 Room Air 10/05/16 20:00 64 64 64 10/05/16 19:48 60 18 Room Air 10/05/16 16:00 60 10/05/16 15:25 97.7 69 18 125/78 100 Room Air 10/05/16 12:00 61 10/05/16 11:27 98.4 58 18 149/62 99 Room Air 10/05/16 09:10 73 10/05/16 09:05 59 10/05/16 09:00 59 10/05/16 08:00 64 10/05/16 07:38 98.2 60 18 153/59 99 Room Air 10/05/16 04:53 97.4 56 20 138/67 98 Room Air 10/05/16 04:00 59 10/05/16 00:00 63 10/05/16 00:00 97.4 64 20 137/69 96 Room Air General Appearance: no apparent distress, alert, other - confused Neck: supple Cardiovascular: normal rate, regular rhythm Respiratory/Chest: lungs clear, normal breath sounds Abdomen: normal bowel sounds, non tender, soft Extremities: no swelling Intake and Output 10/04/16 10/05/16 19:00 07:00 Intake Total 720 ml Balance 720 ml Intake Oral 720 ml # Voids 4 2 Laboratory Tests Test 10/05/16 07:05 White Blood Count 3.8 K/UL (4.8-10.8) L Red Blood Count 4.00 M/UL (4.20-5.40) L Hemoglobin 12.0 G/DL (12.0-16.0) Hematocrit 36.9 % (37.0-47.0) L Mean Corpuscular Volume 92 FL (80-99) Mean Corpuscular Hemoglobin 30.0 PG (27.0-31.0) Mean Corpuscular Hemoglobin Concent 32.5 G/DL (32.0-36.0) Red Cell Distribution Width 13.7 % (11.6-14.8) Platelet Count 144 K/UL (150-450) L Mean Platelet Volume 7.4 FL (6.5-10.1) Neutrophils (%) (Auto) 49.7 % (45.0-75.0) Lymphocytes (%) (Auto) 33.8 % (20.0-45.0) Monocytes (%) (Auto) 11.4 % (1.0-10.0) H Eosinophils (%) (Auto) 3.5 % (0.0-3.0) H Basophils (%) (Auto) 1.7 % (0.0-2.0) Sodium Level 142 mEQ/L (135-145) Potassium Level 3.8 mEQ/L (3.4-4.9) Chloride Level 102 mEQ/L (98-107) Carbon Dioxide Level 31 mEQ/L (20-30) H Anion Gap 9 (5-15) Blood Urea Nitrogen 17 mg/dL (7-23) Creatinine 0.8 mg/dL (0.5-0.9) Estimat Glomerular Filtration Rate mL/min (>60) Glucose Level 87 mg/dL (74-106) Calcium Level 9.0 mg/dL (8.6-10.2) Total Bilirubin < 0.2 mg/dL (0.0-1.2) Aspartate Amino Transf (AST/SGOT) 13 U/L (5-40) Alanine Aminotransferase (ALT/SGPT) 8 U/L (3-33) Alkaline Phosphatase 77 U/L (35-104) Troponin I < 0.30 ng/mL (<=0.30) Total Protein 6.5 g/dL (6.6-8.7) L Albumin 3.2 g/dL (3.5-5.2) L Globulin 3.3 g/dL Albumin/Globulin Ratio 0.9 (1.0-2.7) L Microbiology Date/Time Source Procedure Growth Status 10/03/16 21:00 Urine,Clean Catch Urine Culture - Preliminary Mixed Gram Positive Organism Resulted AKOSUA AMEZQUITA October 05, 2016 21:07
[2016-10-06] VITALS: BP 135/66
[2016-10-06 04:00] VITALS: BP 129/57
--- NOTE | 2016-10-06 07:16 | Cardiology Progress Note ---
Assessment/Plan Assessment/Plan syncope paf now back in sinus demetnia htn probably sick sinus syndrome back in sinus and remain in sinus revieweed tele avoid bb be tolerant of higher bp reading may need to consider option for afib prevention i an concerned about her candidacy for anticoagulation given her dementia maybe best to have her fu with perm assigned manager child through her hmo planned echo noted goo lv fucntion home soon Subjective Cardiovascular: Denies: chest pain, lightheadedness Respiratory: Denies: shortness of breath Gastrointestinal/Abdominal: Denies: abdominal pain Genitourinary: Denies: burning Objective Last 24 Hour Vital Signs Date Time Temp Pulse Resp B/P Pulse Ox O2 Delivery O2 Flow Rate FiO2 10/06/16 04:00 65 10/06/16 04:00 97.7 58 18 129/57 100 Room Air 10/06/16 00:00 72 10/06/16 00:00 97.9 74 18 135/66 100 Room Air 10/05/16 20:00 74 10/05/16 20:00 97.7 64 18 114/58 100 Room Air 10/05/16 20:00 64 64 64 10/05/16 19:48 60 18 Room Air 10/05/16 16:00 60 10/05/16 15:25 97.7 69 18 125/78 100 Room Air 10/05/16 12:00 61 10/05/16 11:27 98.4 58 18 149/62 99 Room Air 10/05/16 09:10 73 10/05/16 09:05 59 10/05/16 09:00 59 10/05/16 08:00 64 10/05/16 07:38 98.2 60 18 153/59 99 Room Air General Appearance: no apparent distress, alert Cardiovascular: normal rate, regular rhythm Respiratory/Chest: lungs clear, normal breath sounds Abdomen: normal bowel sounds, non tender, soft Extremities: no swelling Intake and Output 10/05/16 10/06/16 19:00 07:00 Intake Total 895 ml 240 ml Balance 895 ml 240 ml Intake Oral 840 ml 240 ml IV Total 55 ml # Voids 5 3 Microbiology Date/Time Source Procedure Growth Status 10/03/16 21:00 Urine,Clean Catch Urine Culture - Preliminary Mixed Gram Positive Organism Resulted AKOSUA AMEZQUITA October 06, 2016 07:16
[2016-10-06 07:56] VITALS: BP 138/78
[2016-10-06] MEDS: Heparin 5000 units/ml inj SUBQ SCH ×2 (08:35→21:35)
[2016-10-06] MEDS ORDERED: Tubing IV Secondary IV ONE (09:23)
[2016-10-06 12:00] VITALS: BP 126/71
--- NOTE | 2016-10-06 12:08 | Diagnostic Imaging Report ---
APPROVED REPORT CPT Code: 64366 Present Symptoms Shortness of breath Comments: Chest pain BILATERAL: Imaging reveals a patent deep venous system bilaterally. There is no evidence of thrombus within the femoral, popliteal or tibial segments. The greater saphenous veins are also within normal limits. Doppler indicates normal spontaneous flow within these segments.
--- NOTE | 2016-10-06 12:11 | Diagnostic Imaging Report ---
APPROVED REPORT CPT Code: 30471 Vascular Symptoms Dizziness and Vertigo Doppler Spectral Velocity Analysis RightLeft BILATERAL: CCA/BULB - Imaging reveals irregular, minimal plaque in both carotid bulbs. arteries. The Doppler spectral flow analysis is within normal limits throughout the internal and external carotid arteries. VERTEBRALS - Imaging reveals both vertebral arteries to be patent, without evidence of stenosis or steal.
--- NOTE | 2016-10-06 12:56 | Pulmonology Progress Note ---
Assessment/Plan Problems: (1) Acute encephalopathy (2) Syncope (3) UTI (urinary tract infection) (4) Sick sinus syndrome (5) Chronic lung disease (6) Severe protein-calorie malnutrition (7) Dementia Assessment/Plan all reviewed crdio recommendations appreciated swallow study reviewed, chopped diet start ceftriaxone for uti check echo urine cultures, mixed urine Subjective ROS Limited/Unobtainable: No Constitutional: Reports: no symptoms HEENT: Repors: no symptoms Respiratory: Reports: no symptoms Allergies: Coded Allergies: No Known Allergies (Unverified , 07/02/12) Objective Last 24 Hour Vital Signs Date Time Temp Pulse Resp B/P Pulse Ox O2 Delivery O2 Flow Rate FiO2 10/06/16 12:00 96.8 64 20 126/71 99 Nasal Cannula 10/06/16 09:10 126 10/06/16 09:05 115 10/06/16 09:00 115 10/06/16 08:00 57 10/06/16 07:56 97.6 58 20 138/78 100 Room Air 10/06/16 07:15 55 16 Room Air 10/06/16 04:00 65 10/06/16 04:00 97.7 58 18 129/57 100 Room Air 10/06/16 00:00 72 10/06/16 00:00 97.9 74 18 135/66 100 Room Air 10/05/16 20:00 74 10/05/16 20:00 97.7 64 18 114/58 100 Room Air 10/05/16 20:00 64 64 64 10/05/16 19:48 60 18 Room Air 10/05/16 16:00 60 10/05/16 15:25 97.7 69 18 125/78 100 Room Air Intake and Output 10/05/16 10/06/16 19:00 07:00 Intake Total 895 ml 240 ml Balance 895 ml 240 ml Intake Oral 840 ml 240 ml IV Total 55 ml # Voids 5 3 General Appearance: WD/WN HEENT: normocephalic, atraumatic Respiratory/Chest: chest wall non-tender, lungs clear Cardiovascular: normal peripheral pulses, normal rate Abdomen: normal bowel sounds, soft, non tender Genitourinary: normal external genitalia Extremities: no cyanosis, no clubbing Skin: no rash Neurologic/Psychiatric: lehr operator II-XII grossly normal, no motor/sensory deficits Lymphatic: no neck adenopathy Microbiology Date/Time Source Procedure Growth Status 10/03/16 21:00 Urine,Clean Catch Urine Culture - Final Mixed Gram Positive Organism Complete Current Medications Medications (Trade) Dose Ordered Sig/Laura Route PRN Reason Start Time Stop Time Status Last Admin Dose Admin Acetaminophen (Tylenol) 650 mg Q4H PRN ORAL fever 10/03/16 21:15 11/02/16 21:14 Al Hydroxide/Mg Hydroxide (Mylanta II) 30 ml Q6H PRN ORAL dyspepsia 10/03/16 21:15 11/02/16 21:14 Albuterol/ Ipratropium (DuoNeb 0.5-3(2.5)mg/3ml) 3 ml Q4H PRN HHN Shortness of Breath 10/03/16 21:15 10/08/16 21:14 Ceftriaxone Sodium/Dextrose (Rocephin/D5W) 55 ml @ 110 mls/hr Q24H IVPB 10/05/16 15:00 10/12/16 14:59 10/05/16 14:45 Clonidine HCl 0.1 mg 0.1 mg Q4H PRN ORAL SBP > 160 10/03/16 21:15 11/02/16 21:14 Dextrose (Dextrose 50%) STAT PRN IV Hypoglycemia 10/03/16 21:15 11/02/16 21:14 Heparin Sodium (Porcine) (Heparin 5000 units/ml) 5,000 units EVERY 12 HOURS SUBQ 10/03/16 23:00 11/02/16 22:59 10/05/16 08:35 Lorazepam (Ativan 2mg/ml 1ml) 0.5 mg Q4H PRN IV For Anxiety 10/03/16 21:15 10/10/16 21:14 Morphine Sulfate (Morphine Sulfate) 1 mg Q4H PRN IVP For Pain 7-10 10/03/16 21:15 10/10/16 21:14 Nitroglycerin (Ntg) 0.4 mg Q5M X 3 DOSES PRN SL Prn Chest Pain 10/03/16 21:15 11/02/16 21:14 Ondansetron HCl (Zofran) 4 mg Q6H PRN IVP Nausea & Vomiting 10/03/16 21:15 11/02/16 21:14 Polyethylene Glycol (Miralax) 17 gm HSPRN PRN ORAL Constipation 10/03/16 21:15 11/02/16 21:14 Temazepam (Restoril) 15 mg HSPRN PRN ORAL Insomnia 10/03/16 21:15 10/10/16 21:14 10/03/16 23:56 NEAL TIRADO October 06, 2016 12:56
[2016-10-06] MEDS: cefTRIAXone 1 GM in D5W 55 ML IVPB SCH (15:51)
[2016-10-06 16:00] VITALS: BP 122/71
[2016-10-06 20:00] VITALS: BP 107/54
[2016-10-07] VITALS: BP 110/65
[2016-10-07] MEDS ORDERED: Nitroglycerin Subl 0.4mg tab (Bottle Of 25) SL PRN (02:00)
[2016-10-07] MEDS ORDERED: Mylanta II UD 30ml ORAL PRN (03:15)
[2016-10-07 04:00] VITALS: BP 117/68
[2016-10-07] MEDS ORDERED: Morphine Sulfate 2mg/ml Inj IVP PRN (05:15)
[2016-10-07] MEDS ORDERED: LORazepam Inj 2mg/ml 1ml IV PRN (05:15)
[2016-10-07] MEDS ORDERED: DuoNeb 0.5-3(2.5)mg/3ml neb HHN PRN (05:15)
[2016-10-07 08:23] VITALS: BP_SYST 156; BP_SYST 167; BP_DIAS 75
[2016-10-07] MEDS ORDERED: Heparin 5000 units/ml inj SUBQ SCH (09:00)
[2016-10-07 12:15] VITALS: BP 127/74
[2016-10-07] MEDS ORDERED: cefTRIAXone 1 GM in D5W 55 ML IVPB SCH (15:00)
--- NOTE | 2016-10-07 15:35 | Pulmonology Progress Note ---
Assessment/Plan Problems: (1) Acute encephalopathy (2) Syncope (3) UTI (urinary tract infection) (4) Sick sinus syndrome (5) Chronic lung disease (6) Severe protein-calorie malnutrition (7) Dementia Assessment/Plan can go home today swallow study reviewed, chopped diet on ceftriaxone for uti echo noted, good LV function urine cultures, mixed urine Subjective ROS Limited/Unobtainable: No Interval Events: comfortable Constitutional: Reports: no symptoms HEENT: Repors: no symptoms Respiratory: Reports: no symptoms Allergies: Coded Allergies: No Known Allergies (Unverified , 07/02/12) Objective Last 24 Hour Vital Signs Date Time Temp Pulse Resp B/P Pulse Ox O2 Delivery O2 Flow Rate FiO2 10/07/16 12:15 97.0 66 19 127/74 98 Room Air 10/07/16 11:23 58 62 69 10/07/16 08:23 97.5 62 19 156/75 98 Room Air 10/07/16 04:00 97.0 68 18 117/68 98 Room Air 10/07/16 00:00 97.4 68 18 110/65 96 10/06/16 21:00 61 69 70 10/06/16 20:49 68 18 Room Air 10/06/16 20:00 97.6 61 18 107/54 Room Air 10/06/16 16:00 68 10/06/16 16:00 97.2 71 20 122/71 99 Room Air Intake and Output 10/06/16 10/07/16 19:00 07:00 Intake Total 655 ml 240 ml Balance 655 ml 240 ml Intake Oral 600 ml 240 ml IV Total 55 ml # Voids 6 2 General Appearance: cachetic HEENT: normocephalic, atraumatic Respiratory/Chest: chest wall non-tender, lungs clear Breasts: no masses Cardiovascular: normal peripheral pulses, normal rate Abdomen: normal bowel sounds, soft, non tender Genitourinary: normal external genitalia Extremities: no cyanosis Skin: no rash Neurologic/Psychiatric: train planner II-XII grossly normal, no motor/sensory deficits Current Medications Medications (Trade) Dose Ordered Sig/Laura Route PRN Reason Start Time Stop Time Status Last Admin Dose Admin Acetaminophen (Tylenol) 650 mg Q4H PRN ORAL fever 10/07/16 05:15 11/06/16 05:14 Al Hydroxide/Mg Hydroxide (Mylanta II) 30 ml Q6H PRN ORAL dyspepsia 10/07/16 03:15 11/06/16 03:14 Albuterol/ Ipratropium (DuoNeb 0.5-3(2.5)mg/3ml) 3 ml Q4H PRN HHN Shortness of Breath 10/07/16 05:15 10/12/16 05:14 Ceftriaxone Sodium/Dextrose (Rocephin/D5W) 55 ml @ 110 mls/hr Q24H IVPB 10/07/16 15:00 10/12/16 14:59 Clonidine HCl (Catapres) 0.1 mg Q4H PRN ORAL SBP > 160 10/07/16 05:15 11/06/16 05:14 Dextrose (Dextrose 50%) STAT PRN IV Hypoglycemia 10/07/16 21:15 11/06/16 21:14 Heparin Sodium (Porcine) (Heparin 5000 units/ml) 5,000 units EVERY 12 HOURS SUBQ 10/07/16 09:00 11/06/16 08:59 Lorazepam (Ativan 2mg/ml 1ml) 0.5 mg Q4H PRN IV For Anxiety 10/07/16 05:15 10/14/16 05:14 Morphine Sulfate (Morphine Sulfate) 1 mg Q4H PRN IVP For Pain 7-10 10/07/16 05:15 10/14/16 05:14 Nitroglycerin (Ntg) 0.4 mg Q5M X 3 DOSES PRN SL Prn Chest Pain 10/07/16 02:00 11/06/16 01:59 Ondansetron HCl (Zofran) 4 mg Q6H PRN IVP Nausea & Vomiting 10/07/16 03:15 11/06/16 03:14 Polyethylene Glycol (Miralax) 17 gm HSPRN PRN ORAL Constipation 10/07/16 21:15 11/06/16 21:14 Temazepam (Restoril) 15 mg HSPRN PRN ORAL Insomnia 10/07/16 21:15 10/14/16 21:14 NEAL TIRADO October 07, 2016 15:35
[2016-10-07] MEDS ORDERED: Miralax 17gm pkt ORAL PRN (21:15)
--- NOTE | 2016-10-10 08:24 | Discharge Summary ---
Discharge Summary Hospital Course Date of Admission October 03, 2016 at 18:57 Date of Discharge October 07, 2016 at 15:40 Admitting Diagnosis syncope HPI Kriss Rivera is a 81 year old female who was admitted on October 03, 2016 at 18:57 for Syncope Hospital Course dc summary #[id number] Discharge Medications Continued Medications: Aspirin* (Aspir-Low*) 81 Mg Tablet. 81 MG PO DAILY Discharge Condition Upon Discharge: stable Discharge Disposition Patient was discharged to Home (01) Discharge Diagnoses: Discharge Instructions Discharge Instructions Special Instructions I have been assigned to complete a D/C Summary on this account. I was not involved in the patient management Radha Hummel NP ([place]) October 10, 2016 08:24
--- NOTE | 2016-10-11 02:29 | Discharge Summary 2 SIG ---
DATE OF ADMISSION: 10/03/2016 DATE OF DISCHARGE: 10/07/2016 The patient was admitted under Dr. Osorio. REASON FOR ADMISSION: The patient is a 81-year-old female, who was brought by paramedics for evaluation. She was found at the bedside lying down on the ground. Unclear what happens if the episode was not witnessed. The patient had dementia and was unable to provide any information at that time. The patient did not recall falling. The patient denied chest pain or shortness of breath. The patient denied fever or chills. In the emergency room, the patient was afebrile. Blood pressure was stable. EKG shows sinus rhythm. No acute changes. Chest x-ray revealed interstitial lung changes, chronic. The patient was started on the IV fluids. In the emergency department, troponin was negative. CT of the head revealed no acute intracranial pathology. The patient was admitted for further management. ADMITTING DIAGNOSES: Includes, 1. Syncope. 2. Acute encephalopathy. 3. Dementia. 4. Severe protein-calorie malnutrition. 5. Chronic lung disease. HOSPITAL STAY: The patient was admitted to telemetry floor. Cardiology consult was requested. Serial troponins were negative. EKG revealed no acute change, but the patient was ruled out for acute myocardial infarction. The patient was noted to be in paroxysmal atrial fibrillation and spontaneously converted to sinus rhythm. 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 He recommended to avoid beta-ulises. Echocardiogram revealed preserved ejection fraction of 60% to 65% and right ventricular systolic pressure of 31. Repeated EKG also shows no acute changes. Carotid duplex essentially was negative. Venous duplex of bilateral lower extremity was negative. Blood pressure was stable without any antihypertensive medication. According to residential designer, he recommended to be tolerant of higher blood pressure reading and to follow up with the residential designer as per the patient's insurance. No further episode. The patient denied any dizziness, weakness, or lightheadedness. No further episodes of blackout or near syncope. The patient undergone swallow evaluation. Diet resumed as per speech therapy recommendation. The patient was working with physical and occupational therapist. Urine culture revealed mixed gram-positive organism with 9200. The patient was started on ceftriaxone. The patient is status post treatment for ceftriaxone. Afebrile and no leukocytosis. The patient is stable for discharge home. DISCHARGE DIAGNOSES: Includes, 1. Syncope. 2. Acute encephalopathy, resolved. 3. Paroxysmal atrial fibrillation. Of note, residential designer recommended to hold on anticoagulation as the patient seemed to be a poor candidate, however, he recommended further workup as an outpatient per the patient's insurance. 4. Hypertension. 5. Probable sick sinus syndrome. 6. Chronic lung disease. 7. Of note, supplemental oxygen and pulmonary toilet provided as needed. The patient's pulse oximetry was stable on room air. 8. Dementia. 9. Protein-calorie malnutrition. 10. Urinary tract infection. DISCHARGE MEDICATIONS: See medication reconciliation list. DISCHARGE INSTRUCTIONS: The patient was discharged home. Follow up with the primary medical doctor and residential designer per insurance. Catalino Osorio M.D. I have been assigned to dictate discharge summary on this account and I was not involved in the patient's management. Radha Garciast. [facility] NM[facility]: PAPO JOB#: [id number] CC:
== END 2016-10-07 15:40 | disposition home or self-care (01) | DRG 312 ==
LOC: EDBD 17:46 → EMR 18:10 → 2W 18:57 → OBSVTOIN 18:57 → INTOOBSV 18:57 → EDBEDREQ 20:44 → 2E 10-04 06:53 → 4W 10-07 02:00
DX: R55 Syncope and collapse (principal); E43 Unspecified severe protein-calorie malnutrition; G93.40 Encephalopathy, unspecified; I49.5 Sick sinus syndrome; F03.90 Unspecified dementia, unspecified severity, without behavioral disturbance, psychotic disturbance, mood disturbance, and anxiety; I48.0 Paroxysmal atrial fibrillation; N39.0 Urinary tract infection, site not specified; R64 Cachexia; I10 Essential (primary) hypertension; J98.4 Other disorders of lung
CPT/HCPCS: 36415; 70450; 71010; 80053; 80061; 81003; 82550; 82553; 82962; 83880; 84443; 84484; 85025; 85610; 85730; 87086; 93005; 93306; 93880; 93970; 94664